=== PATIENT | male | born 1960 | race Hispanic/Latino ===

== ENCOUNTER 2021-01-26 06:15 | Day surgery (SDC) | payer MEDICARE ==
[~2021-01-26 06:15] MED LIST: ACETAMINOPHEN 500 MG TAB PO SCH; LACTATED RINGERS 1,000 ML IV SCH; MIDAZOLAM 2 MG/2 ML INJ IV NR
[2021-01-26] MEDS ORDERED: BACTERIOSTATIC SODIUM CHLORIDE 0.9% 30 ML VIAL INFILTRATI ONE (06:47)
[2021-01-26] MEDS ORDERED: BUPIVACAINE/PF (0.5%) 5 MG/1 ML 30 ML VIAL INFILTRATI ONE (07:12)
[2021-01-26] MEDS ORDERED: LIDOCAINE 1%/EPINEPHRINE 1:100,000 VIAL (20 ML) INFILTRATI ONE (07:13)
[2021-01-26] MEDS ORDERED: ONDANSETRON 4 MG/2 ML INJ IV PRN (07:30)
[2021-01-26] MEDS ORDERED: HYDROmorphone 1 MG/1 ML INJ IV PRN (07:30)
[2021-01-26] MEDS ORDERED: HYDROcodone/ACETAMINOPHEN 5-325 MG TAB PO PRN (07:30)
--- NOTE | 2021-01-26 07:30 | Anesthesia Consultation ---
Anesthesia Consult and Med Hx Date of service: 01/26/21 - Airway Anesthetic Teeth Evaluation: Good ROM Head & Neck: Adequate Mental/Hyoid Distance: Adequate Mallampati Class: Class II Intubation Access Assessment: Probably Good - Pre-Operative Health Status ASA Pre-Surgery Classification: ASA2 Proposed Anesthetic Plan: General, MAC - Pre-Anesthesia Comment Pre-Anesthesia Comments: GA vs MAC pending discussion with surgeon regarding extent of intended procedure. 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
--- NOTE | 2021-01-26 07:30 | Anesthesia Day of Surgery ---
Anesthesia Day of Surgery - Day of Surgery Patient Examined: Yes Patient H&P Reviewed: Yes Patient is NPO: Yes
[2021-01-26] MEDS ORDERED: MIDAZOLAM 2 MG/2 ML INJ ONE (07:47)
[2021-01-26] MEDS ORDERED: HYDROmorphone 1 MG/1 ML INJ ONE (07:48)
[2021-01-26] MEDS ORDERED: propofoL 200 MG/20 ML VIAL IV ONE ×3 (07:48→09:07)
[2021-01-26] MEDS ORDERED: LIDOCAINE MPF (2%) 20 MG/1 ML VIAL 5 ML ONE (07:52)
[2021-01-26] MEDS ORDERED: ceFAZolin/Water 2 GM/20 ML 2 GM/20 ML SYRINGE IV ONE (08:21)
[2021-01-26] MEDS ORDERED: HEPARIN 5,000 UNIT/1 ML VIAL ONE (08:21)
[2021-01-26] MEDS ORDERED: ceFAZolin/Water 2 GM/20 ML 2 GM/20 ML SYRINGE IV NR (08:30)
[2021-01-26] MEDS ORDERED: HEPARIN 5,000 UNIT/1 ML VIAL SUB-Q NR (08:45)
--- NOTE | 2021-01-26 09:38 | Procedure Note ---
Date of procedure: 01/26/21 Pre-op diagnosis: Soft tissue mass, left chest, 4.5 cm Post-op diagnosis: same Procedure: Excision of soft tissue mass, left chest, 4.5 cm Description of procedure: Pt was placed supine on the OR table. MAC anesthesia was administered. Chest was prepped and draped. Skin and SQ tissue at the proposed incision were infiltrated with 8 ml of 1% Lidocaine with epinephrine. The mass was excised with sharp and Bovie dissection. Bleeding was minimal and was controlled with the Bovie. Deep dermis was approximated with interrupted sutures of 3-0 Vicryl. Skin was approximated with a running subcuticular suture of 4-0 Monocryl. Skin glue was applied. Pt tolerated the procedure well and was taken to PACU in stable condition. Anesthesia: MAC Surgeon: NABIL CONKLIN Estimated blood loss: minimal Pathology: list (1) left chest soft tissue mass) Specimen disposition: to lab Condition: stable Disposition: PACU
[2021-01-26 09:58] VITALS: BP 106/76
--- NOTE | 2021-01-26 10:49 | Post Anesthesia Evaluation ---
- Post Anesthesia Evaluation Patient Participated: Yes Airway Patent: Yes Stable Respiratory Function: Yes Nausea/Vomiting: No Temp > 96.8F: Yes Pain Manageable: Yes Adequeate Hydration: Yes Anesthesia Complications: No
== END 2021-01-26 10:25 | disposition home or self-care (01) ==
LOC: OR 06:15
PROVIDERS: ATTEND Surgery
DX: R22.2 Localized swelling, mass and lump, trunk (principal); L72.0 Epidermal cyst; Z20.822 Contact with and (suspected) exposure to COVID-19; E11.9 Type 2 diabetes mellitus without complications; E66.9 Obesity, unspecified; Z68.32 Body mass index [BMI] 32.0-32.9, adult; Z79.899 Other long term (current) drug therapy; Z98.890 Other specified postprocedural states
CPT/HCPCS: 11406; 12032; 82962; 88304; J0690; J1170; J1644; J2250; J2704; J7120; U0003